=== PATIENT | female | born 1990 | race Caucasian/White ===

== ENCOUNTER 2017-05-16 19:11 | Emergency (ER) | payer OTHER ==
[~2017-05-16] VITALS: Ht 167.6 cm; Wt 75.0 kg
[2017-05-16] MEDS ORDERED: ERGO2000 PO (19:46)
[2017-05-16] MEDS ORDERED: FERR134T2 PO (19:46)
[2017-05-16] MEDS ORDERED: IBUP-2070 PO (19:46)
[2017-05-16] MEDS ORDERED: IBUPROFEN 600 MG TABLET PO ONE (23:30)
[2017-05-17] MEDS ORDERED: ACETAMINOPHEN/CODEINE 300-30 MG TABLET PO ONE (00:30)
[2017-05-17 00:38] VITALS: BP 127/73
== END 2017-05-17 00:45 | disposition home or self-care (01) ==
LOC: EMS 19:12
DX: S92.512A Displaced fracture of proximal phalanx of left lesser toe(s), initial encounter for closed fracture (principal); W23.0XXA Caught, crushed, jammed, or pinched between moving objects, initial encounter; Y93.02 Activity, running; Y92.89 Other specified places as the place of occurrence of the external cause; Y99.8 Other external cause status
CPT/HCPCS: 29550; 81025; 99284